=== PATIENT | male | born 1980 | race Two or more races ===

== ENCOUNTER 2018-04-24 15:48 | Emergency (ER) | payer OTHER ==
[~2018-04-24] VITALS: Ht 172.7 cm; Wt 86.0 kg
[2018-04-24] MEDS ORDERED: AZITHROMYCIN 250 MG TABLET PO ONE (16:45)
[2018-04-24] MEDS ORDERED: CefTRIAXone SODIUM 1 GM/VIAL IM ONE (16:45)
[2018-04-24 16:59] VITALS: BP 134/86
== END 2018-04-24 17:17 | disposition home or self-care (01) ==
LOC: EMS 15:49
DX: N34.2 Other urethritis (principal)
CPT/HCPCS: 96372; 99283; J0696